=== PATIENT | female | born 2005 | race Caucasian/White ===

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

== ENCOUNTER → 2023-04-10 11:31 | Outpatient (BNVA) | payer SELFPAY | PROVIDERS: Visit Provider Emergency Medicine | DX: J02.9 Acute pharyngitis, unspecified (principal) | CPT/HCPCS: 87071; 87880 ==

== ENCOUNTER 2023-08-08 15:57 | Emergency (ER) | payer OTHER, SELFPAY ==
[2023-08-08 16:08] VITALS: BP 115/78; PULSE 84; RESP 16; TEMP 36.6; O2SAT 99; BMI 22.8
--- NOTE | 2023-08-08 16:16 | W.ED.ALLEREA ---
HPI - Allergic Reaction General: Chief complaint: Allergic Reaction Stated complaint: skin irritation Time Seen by Provider: 08/08/23 15:58 Source: patient Mode of arrival: ambulatory Limitations: no limitations History of Present Illness: HPI narrative: Patient is a 17-year-old female who presents to ED today with complaint of pruritic rash beginning today. Patient states she did use a new body wash yesterday evening. She states the rash is mainly affecting her arms, neck, scalp, and torso. Patient states she had a similar rash a few years ago after using a new old spice deodorant. She does not complain of any lip or tongue swelling, trouble swallowing, shortness of breath, difficulty breathing, or throat itching. She has not taken any medications at home for the rash. MD complaint: allergic reaction and other (rash) Onset (ago): hour(s) Exposure: other (new body wash) Associated symptoms: Reports rash; Deny abdominal pain, dizziness, nausea or vomiting Severity: mild Treatment prior to arrival: none Previous Allergic Reaction History: other (similar rash when using a new deodorant) Review of Systems Const: Denies: fever(s), chills, body aches, fatigue or malaise Eyes: Denies: change in vision, blurry vision, eye discomfort, eye discharge or eye redness ENMT: Reports: other (no lip/tongue swelling or throat itching) Card: Denies: chest pain Resp: Denies: dyspnea GI: Denies: abdominal pain, nausea or vomiting Skin/Breast: Reports: rash, pruritus and erythema Neuro: Denies: headache(s) or dizziness Physical Exam Const: COMMON NORMALS: no acute distress, average body habitus, patient oriented x3, no limitations, healthy appearing, alert and well nourished HENMT: FACE & SINUS: normal facial exam; no erythema and no edema MOUTH: Normal oral and palatal mucosa present, lip normal, tongue normal and other (no angioedema) THROAT: posterior oropharynx normal Eye: GENERAL EYE: appearance normal, both eyes and all related structures Resp: COMMON NORMALS: normal respiratory effort Extremity: GENERAL: Yes normal exam except as noted Neuro: COMMON NORMALS: patient oriented x3 SENSORIUM/ORIENTATION: Yes alert Skin: RASHES: rashes noted OTHER: erythematous rash noted to bilateral UEs, anterior/posterior neck/scalp, pictures on her phone of rash affecting back earlier today but this has subsided upon my examination Course Vital Signs: Vital signs: Vital Signs Temperature 97.9 F 08/08/23 16:08 Pulse Rate 67 08/08/23 16:47 Respiratory Rate 15 08/08/23 16:47 Blood Pressure 130/86 08/08/23 16:47 Pulse Oximetry 99 08/08/23 16:47 Oxygen Delivery Me thod Room Air 08/08/23 16:47 MDM - Allergic Reaction Medical Decision Making Patient was given IM steroids/benadryl. Rash vastly improved upon discharge. Recommend continuing Benadryl at home over the next 24 to 48 hours or as needed. Discontinue body wash as this most likely was the culprit of rash. Return ED precautions given. Differential Diagnosis Likely allergic reaction and contact dermatitis Medical Records I reviewed the patient's medical records. No radiology studies performed this visit Discharge Plan Discharge Patient Disposition: Home Clinical Impression: Allergic reaction Qualifiers: Encounter type: initial encounter Qualified Code(s): T78.40XA - Allergy, unspecified, initial encounter Condition: Stable Prescriptions: No Action control PO ibuprofen 600 mg tablet 600 mg PO Q8H PRN (Reason: pain) Qty: 30 0RF mupirocin 2 % ointment 1 applic topical BID Qty: 22 0RF Discharge Orders: Discharge ED (Routine); Ordered 08/08/23 Ordered By: Bettye Serrano Referrals: Kartik Chase MD [Primary Care Provider] - Patient Instructions: Allergic Reaction Activity Restrictions/Additional Instructions: As we discussed you can continue taking 50 mg of Diphenhydramine/Benadryl every 6 hours as needed for rash/itching. If rash persists over the next 48 to 72 hours please follow-up with your primary care provider. 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
[2023-08-08] MEDS: methylPREDNISolone sod succ 125 mg/2 mL INJ 80 MG IM (16:33)
[2023-08-08] MEDS: diphenhydrAMINE 50 mg/mL SDV 1mL IM (16:34)
--- NOTE | 2023-08-08 16:39 | PC.NURSE ---
d/c delayed d/t shot time, waiting approximately 20min post IM injections.
[2023-08-08 16:47] VITALS: BP 130/86; PULSE 67; RESP 15; O2SAT 99
--- NOTE | 2023-08-08 17:09 | PC.NURSE ---
pt states I am feeling much better post IM injections (see MAR), not rash/redness noted on pt at this time. Provider notified
[2023-08-08 17:10] VITALS: BP 130/86; PULSE 67; RESP 15; O2SAT 99
== END 2023-08-08 17:11 | disposition home or self-care (01) ==
PROVIDERS: Emergency Provider Physician Assistant; PCP Family Medicine
DX: L23.5 Allergic contact dermatitis due to other chemical products (principal)
CPT/HCPCS: 96372; 99284; J1200; J2930

== ENCOUNTER → 2023-12-13 12:30 | Outpatient (BNVA) | payer OTHER, SELFPAY | PROVIDERS: PCP Family Medicine; Visit Provider Registered Nurse Neonatal Intensive Care | DX: N89.8 Other specified noninflammatory disorders of vagina (principal) | CPT/HCPCS: 81000; 81025; 87491; 87591 ==